=== PATIENT | female | born 1955 ===

== ENCOUNTER 2022-12-18 09:00 | Inpatient (IN) | payer OTHER ==
[~2022-12-18] VITALS: Ht 157.5 cm; Wt 68.9 kg
[2022-12-18] MEDS ORDERED: PROTONIX20 MG PO (12:48)
[2022-12-18] MEDS ORDERED: ZYRTEC10 M3 PO (12:48)
[2022-12-18] MEDS ORDERED: TYLENOL325 MG PO (12:49)
[2022-12-23] MEDS ORDERED: FAMOTIDINE40 MG (08:36)
[2022-12-23] MEDS ORDERED: OLOPATADINE HC2.5 ML (08:37)
[2022-12-23] MEDS ORDERED: MONTELUKAST SOD10 MG (08:37)
[2022-12-23] MEDS ORDERED: ROSUVASTATIN CAL5 MG (08:37)
== END 2022-12-24 18:45 | disposition home or self-care (01) | DRG 330 ==
LOC: O/R 12-22 06:54 → SURG 12-22 06:54 → SURH 12-22 10:30 → SURG 12-22 15:22
PROVIDERS: ADMIT Colon & Rectal Surgery; ATTEND Colon & Rectal Surgery
PROC: 0DBP4ZZ Excision of Rectum, Percutaneous Endoscopic Approach (ICD-10-PCS; 2022-12-22)
PROC: 0DJD8ZZ Inspection of Lower Intestinal Tract, Via Natural or Artificial Opening Endoscopic (ICD-10-PCS; 2022-12-22)
PROC: 0DTN4ZZ Resection of Sigmoid Colon, Percutaneous Endoscopic Approach (ICD-10-PCS; principal; 2022-12-22 10:45)
DX: K57.32 Diverticulitis of large intestine without perforation or abscess without bleeding (principal); K92.1 Melena; N73.6 Female pelvic peritoneal adhesions (postinfective); N99.4 Postprocedural pelvic peritoneal adhesions; Z20.822 Contact with and (suspected) exposure to COVID-19; K21.9 Gastro-esophageal reflux disease without esophagitis